=== PATIENT | female | born 1955 | race Caucasian/White ===

== ENCOUNTER 2016-10-24 09:41 | Outpatient (CLI) | payer OTHER ==
--- NOTE | 2016-10-24 15:15 | Diagnostic Imaging Report ---
[facility] [address] [facility].[address] [address] Report Submission Date: Oct 24, 2016 1:16:09 PM FLIGHT TECHNICIAN Patient Study Name: AKASH MARTINEZ Date: Oct 24, 2016 9:50:40 AM FLIGHT TECHNICIAN Modality Type: CR Gender: F Description: CHEST : 59 Institution: [facility] Physician: GEE GOMEZ Chest two views HISTORY: Cough, shortness of breath, wheezing for 2 weeks FINDINGS: The lungs are clear and mildly hyperinflated. There is no infiltrate or pleural effusion. Heart size and pulmonary vascularity are normal. IMPRESSION: Mild hyperinflation. Electronically signed on Oct 24, 2016 1:16:09 PM FLIGHT TECHNICIAN by: Eric BELL
== END 2016-10-24 09:51 ==
LOC: RAD 09:41
PROVIDERS: ATTEND Family Medicine
DX: R05 Cough (principal)
CPT/HCPCS: 71020

== ENCOUNTER 2017-01-08 13:13 | Outpatient (CLI) | payer OTHER ==
--- NOTE | 2017-01-08 16:14 | Diagnostic Imaging Report ---
[facility] [address] [facility].[address] [address] Report Submission Date: Jan 08, 2017 3:36:39 PM CDT Patient Study Name: AKASH MARTINEZ Date: Jan 08, 2017 1:29:24 PM CDT Modality Type: CR Gender: F Description: LOWER EXTREMITY : 59 Institution: [facility] Physician: JOSE SAN - OP Right ankle - three views Clinical history: Fall. Pain. Findings: Examination of the right ankle in AP, lateral and oblique views demonstrates remote post-traumatic and postoperative changes with metallic plate secured to the lateral aspect of the distal fibula by multiple screws. Additional lag screws extend through the medial malleolus into the distal tibial shaft. Bony fusion of the distal aspect of the tibia and fibula. There is mild narrowing of the ankle mortise laterally. There is no acute fracture. Impression: 1. Remote postoperative and post-traumatic changes. 2. Distal fusion of the tibia and fibula. 3. Degenerative changes. Electronically signed on Jan 08, 2017 3:36:39 PM CDT by: Isidro BELL
--- NOTE | 2017-01-08 16:14 | Diagnostic Imaging Report ---
[facility] [address] [facility].[address] [address] Report Submission Date: Jan 08, 2017 3:38:02 PM CDT Patient Study Name: AKASH MARTINEZ Date: Jan 08, 2017 1:33:46 PM CDT Modality Type: CR Gender: F Description: LOWER EXTREMITY : 59 Institution: [facility] Physician: JOSE SAN - OP Right foot - three views Clinical history: Fall with injury. Pain. Findings: Examination of the right foot in plantar, lateral and oblique views demonstrates mild degenerative changes with narrowing of the interphalangeal joints and the first metatarsophalangeal joint. There is no evidence of acute fracture and no lytic or blastic lesion. Small calcaneal spur is seen at the site of insertion of the plantar aponeurosis. Impression: 1. Mild degenerative changes. 2. No fracture. Electronically signed on Jan 08, 2017 3:38:02 PM CDT by: Isidro BELL
== END 2017-01-08 13:14 ==
LOC: RAD 13:13
PROVIDERS: ATTEND Family Medicine
DX: M79.671 Pain in right foot (principal); W19.XXXA Unspecified fall, initial encounter; Y93.9 Activity, unspecified; Y99.9 Unspecified external cause status
CPT/HCPCS: 73610; 73630

== ENCOUNTER 2017-01-22 23:17 | Emergency (ER) | payer OTHER ==
--- NOTE | 2017-01-22 23:26 | ED Physician Documentation ---
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 ate the same meal with no problem. Pt has had some nausea. Pt had BTL many years ago. No other abd surgeries. Pt had been having normal bm's. No fever.) - ROS CONST: no problems EYES/ENT: none CVS/RESP: none GI/: abdominal pain, nausea MS/SKIN/LYMPH: none - PAST HX Past History: hypertension, other (thyroid d/o) Surgeries/Procedures: BTL Allergies/Adverse Reactions: Allergies Allergy/AdvReac Type Severity Reaction Status Date / Time nabumetone [From Relafen] Allergy Verified 01/22/17 23:41 - SOCIAL HX Smoking History: non-smoker - FAMILY HX Family History: No - REVIEWED ASSESSMENTS Nursing Assessment Reviewed: Yes Vitals Reviewed: Yes Progress - Progress Progress: NS 500 cc ivf Zofran 4 mg IV Dilaudid 1 mg IV KUB: Findings: There is an air distended small bowel in the left abdomen and pelvis. Vascular calcifications present in the pelvis. The lung bases are clear. There is air and fecal material in the right colon.. No renal calcifications are seen. The bones are within normal limits. No abdominal masses identified. CT abd/pelvis w/iv contrast: The stomach esophagus are fluid distended. The liver spleen adrenal glands pancreas and gallbladder are normal. The kidneys enhance normally. There is no retroperitoneal mass. Dilated small bowel loops with a transition and nondilated small bowel are present. Fecalized small bowel contents are present. There is free pelvic fluid. Colonic diverticulosis is present. The colon shows partial collapse. The gallbladder is unremarkable. Lumbar spondylosis is present. The thumb Transfer to . [facility]. Dr. Briones. General Adult Physical Exam - PHYSICAL EXAM GENERAL APPEARANCE: moderate distress EENT: pharynx normal NECK: normal inspection, supple RESPIRATORY: no resp distress, chest non-tender, breath sounds normal CVS: reg rate & rhythm, heart sounds normal ABDOMEN: soft, tenderness (upper abd tenderness), decreased BS BACK: normal inspection, no CVA tenderness SKIN: warm/dry, normal color EXTREMITIES: non-tender, normal range of motion, no evidence of injury NEURO: oriented X3, motor nml, sensation nml Discharge Clincal Impression: small bowel obstruction Referrals: Lora Leal MD [Primary Care Provider] - Condition: Stable Disposition: 02 XFER SHT-TRM HOSP Decision to Admit: NO Decision Time: 01:59
--- NOTE | 2017-01-23 00:02 | Diagnostic Imaging Report ---
LEANNE ESPAÑA [facility] [address] [facility] [address] [address] Report Submission Date: Jan 22, 2017 11:58:56 PM CDT Patient Study Name: AKASH MARTINEZ Date: Jan 22, 2017 11:44:41 PM CDT Modality Type: CR Gender: F Description: ABDOMEN : 59 Institution: [facility] Physician: LEANNE ESPAÑA Clinical history: Abdominal pain Technique ap supine radiograph of the abdomen Findings: There is an air distended small bowel in the left abdomen and pelvis. Vascular calcifications present in the pelvis. The lung bases are clear. There is air and fecal material in the right colon.. No renal calcifications are seen. The bones are within normal limits. No abdominal masses identified. Impression: Some mild air distention of small bowel in the left lower quadrant present. Cannot rule out bowel obstruction. Consider CT for further evaluation Electronically signed on Jan 22, 2017 11:58:56 PM CDT by: Karlos BELL
[2017-01-23] MEDS: 0.9 % SODIUM CHLORIDE 500 ML IV ONE (00:14)
[2017-01-23] MEDS: ONDANSETRON HCL/PF 4 MG/ 2ML VIAL IVP ONE (00:15)
[2017-01-23] MEDS: HYDROmorphone HCL/PF 1 MG/ML DISP.SYRIN IVP ONE ×2 (00:19→02:15)
[2017-01-23 00:21] LABS: BASOPHILS % 0.3 (0.0-1.5); EOSINOPHILS % 1.5 % (0.0-6.8); MEAN CORPUSCULAR HEMOGLOBIN 31.5 pg (28.0-34.0); MEAN CORPUSCULAR VOLUME 92.9 fl (80.0-100.0); MONOCYTES % 3.4 % (0.0-11.0); NEUTROPHILS # 12.8 # k/uL (1.4-7.7)
[2017-01-23 00:38] LABS: eGFR (African) > 60; eGFR (Non-African) > 60
[2017-01-23] MEDS ORDERED: 0.9 % SODIUM CHLORIDE 1,000 ML IV ONE (01:19)
[2017-01-23] MEDS: 0.9 % SODIUM CHLORIDE 1,000 ML IV ONE (01:28)
--- NOTE | 2017-01-23 01:36 | Diagnostic Imaging Report ---
LEANNE ESPAÑA [facility] [address] [facility] [address] [place], [place]. [address] Report Submission Date: Jan 23, 2017 1:34:09 AM CDT Patient Study Name: AKASH MARTINEZ Date: Jan 23, 2017 12:55:52 AM CDT Modality Type: CT\SR Gender: F Description: CT ABD & PELVIS W/ CON : 59 Institution: [facility] Physician: LEANNE ESPAÑA KRISTEN CT abdomen and pelvis with contrast Date of study: 23 January 2017 CLINICAL HISTORY: CRAMPING, PAIN IN MIDDLE ABDOMEN, NAUSEA, VOMITING SINCE 9 THIS EVENING. (Hx) / ABD PAIN, POSSIBLE OBSTRUCTION (DICOM Hx) TECHNIQUE: 5 mm contiguous axial images of the abdomen and pelvis with IV contrast. With ; 89 CC OMNIPAQUE FINDINGS: The stomach esophagus are fluid distended. The liver spleen adrenal glands pancreas and gallbladder are normal. The kidneys enhance normally. There is no retroperitoneal mass. Dilated small bowel loops with a transition and nondilated small bowel are present. Fecalized small bowel contents are present. There is free pelvic fluid. Colonic diverticulosis is present. The colon shows partial collapse. The gallbladder is unremarkable. Lumbar spondylosis is present. The thumb IMPRESSION: Distal small bowel obstruction Minimal aortoiliac vascular calcification Small amount of free pelvic fluid Lumbar spondylosis Electronically signed on Jan 23, 2017 1:34:09 AM CDT by: Karlos BELL
[2017-01-23 02:37] VITALS: BP 137/64
== END 2017-01-23 02:35 | disposition short-term general hospital (02) ==
LOC: ED 23:17
DX: K56.60 Unspecified intestinal obstruction (principal)
CPT/HCPCS: 74000; 74177; 80053; 82150; 85025; J1170; J2405; J7030; J7060; 96361; 96374; 96375; 99283; 99284; A9698; S1016

== ENCOUNTER 2017-02-03 07:49 | Outpatient (CLI) | payer OTHER ==
--- NOTE | 2017-02-03 13:20 | Diagnostic Imaging Report ---
JOSE SAN [facility] [address] [facility] [address] [address] Report Submission Date: February 03, 2017 8:29:15 AM CDT Patient Study Name: AKASH MARTINEZ Date: February 03, 2017 7:58:59 AM CDT Modality Type: CR Gender: F Description: SPINE : 59 Institution: [facility] Physician: JOSE SAN 3 views of the lumbar spine History: LOW BACK PAIN THAT RADIATES TO RIGHT LEG Findings: No comparison studies Motion artifact. Multilevel lumbosacral degenerative changes are noted most prominent at L3-4. There is reduced intervertebral disc space at L3-4 with sclerotic endplates and intervertebral disc space narrowing. Facet arthropathy is noted in the lower lumbar spine There is minimal grade I anterolisthesis L4 on L5. Degenerative changes with osteophytes, grade I retrolisthesis of T12 over L1. L1 lamina, pars not clearly seen due to artifact. Impression: Multilevel degenerative changes, worst at L3-4 with endplate erosions, disc space narrowing. Lower lumbar spine facet arthropathy Grade I anterolisthesis of L4 on L5. Grade I retrolisthesis T12 - L1 with degenerative changes at this level Electronically signed on February 03, 2017 8:29:15 AM CDT by: Marie BELL
--- NOTE | 2017-02-03 13:21 | Diagnostic Imaging Report ---
JOSE SAN [facility] [address] [facility].[address] [address] Report Submission Date: February 03, 2017 8:22:39 AM CDT Patient Study Name: AKASH MARTINEZ Date: February 03, 2017 7:57:08 AM CDT Modality Type: CR Gender: F Description: PELVIS : 59 Institution: [facility] Physician: JOSE SAN A single frontal view of the pelvis History: LOW BACK PAIN THAT RADIATES TO RIGHT LEG Findings: No comparison studies The bones are demineralized with degenerative changes in at SI joints. Sacrum is not well seen due to overlying stool No evidence of acute fracture or dislocation Impression: No evidence of acute fracture or dislocation Sacrum not well seen. Electronically signed on February 03, 2017 8:22:39 AM CDT by: Marie BELL
== END 2017-02-03 07:50 ==
LOC: RAD 07:49
PROVIDERS: ATTEND Family Medicine
DX: M54.5 Low back pain (principal)
CPT/HCPCS: 72100; 72170